=== PATIENT | female | born 1985 | race Two or more races ===

== ENCOUNTER 2020-04-01 07:00 | Day surgery (SDC) | payer OTHER ==
[~2020-04-01] VITALS: Ht 160 cm; Wt 104.3 kg
--- NOTE | 2020-04-01 06:24 | NUR ---
PTE SE RECIBE POR BLEEDINDG ANAL Y DOLOR REFIERE PTE.
--- NOTE | 2020-04-01 07:32 | NUR ---
MS MAHMOOD ORIENTA A PACIENTE SOBRE ORDENES MEDICAS, COLECTA MUESTRAS DE LABORATORIO, CANALIZA VENA Y ADMINISTRA MONA ORDENADO. PENDIENTE EVALUACION DE COLORECTAL AKILA M GOTTLIEB POR HEMORROIDES TROMBOSADAS.
--- NOTE | 2020-04-01 08:16 | NUR ---
SE LE REALIZA EKG Y SE LE VICTORIA MUESTRA DE COVID-19 MOLECULAR. SE HCEN LOS ARREGLOS PARA LA ADMICION PARA AVRIL DE OPERACIONES. SE MANTIENE BAJO OBSERVACION
--- NOTE | 2020-04-01 08:40 | NUR ---
SE PREPARA PTE PARA AVRIL DE OPERACIONES Y SE ORIENTA.
[2020-04-01] MEDS ORDERED: PERCOCET 5-3251 EACH PO (12:59)
[2020-04-01] MEDS ORDERED: KETO10TA2 PO (13:00)
[2020-04-01] MEDS ORDERED: NEURONTIN300 MG PO (13:00)
== END 2020-04-01 13:00 | disposition home or self-care (01) ==
LOC: CIR.AMB 07:00 → SEC-K 07:55 → ER 07:55 → CIR.AMB 13:00 → O/R 16:42 → SEC-K 16:42 → O/R 16:42 → EDSTATUS 21:00
PROVIDERS: ATTEND Surgery
DX: K64.5 Perianal venous thrombosis (principal); Z20.828 Contact with and (suspected) exposure to other viral communicable diseases